=== PATIENT | female | born 2005 | race Caucasian/White ===

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

== ENCOUNTER 2024-06-13 12:24 | Emergency (ER) | payer OTHER ==
[~2024-06-13] VITALS: Ht 157.4 cm; Wt 89.8 kg
[2024-06-13] MEDS ORDERED: VIBRAMYCIN100 MG PO (13:59)
[2024-06-13] MEDS ORDERED: Doxycycline Hyclate 100 MG CAPSULE PO ONE (14:00)
== END 2024-06-13 14:11 | disposition home or self-care (01) ==
LOC: ED 12:24
DX: L60.0 Ingrowing nail (principal)

== ENCOUNTER 2025-02-20 10:01 | Emergency (ER) | payer OTHER ==
[~2025-02-20] VITALS: Ht 157.4 cm; Wt 98.9 kg
[~2025-02-20 10:01] MED LIST changes: +VIBRAMYCIN100 MG PO
[2025-02-20] MEDS ORDERED: ACETAMINOPHEN 325 MG TAB PO ONE (10:50)
== END 2025-02-20 12:28 | disposition home or self-care (01) ==
LOC: ED 10:01
DX: S60.032A Contusion of left middle finger without damage to nail, initial encounter (principal); S60.042A Contusion of left ring finger without damage to nail, initial encounter; F90.9 Attention-deficit hyperactivity disorder, unspecified type; W22.8XXA Striking against or struck by other objects, initial encounter; Y93.89 Activity, other specified; Y92.89 Other specified places as the place of occurrence of the external cause; Y99.8 Other external cause status